=== PATIENT | female | born 1955 | race Caucasian/White ===

== ENCOUNTER 2021-11-27 05:40 | Observation (INO) ==
[~2021-11-27 05:40] MED LIST: HYDROmorphone 1 MG/1 ML SYRINGE IV PRN; Naloxone 0.4 mg VIAL 0.4 mg/ml 1 ml VIAL IV PRN; Ondansetron 4 mg VIAL 2 MG/ML 2 ml VIAL IV PRN
[2021-11-27] MEDS ORDERED: Lactated Ringers 1000 ml BAG 1,000 ML IV SCH ×2 (06:00→11:00)
[2021-11-27] MEDS ORDERED: Buffered Lidocaine 1% SYRIN 1 ml INTRADERM ONE (06:00)
[2021-11-27] MEDS ORDERED: ceFAZolin 2 GM in NS PREMIX 2 GM/100 ML BAG IVPB ONE (06:36)
[2021-11-27] MEDS ORDERED: Midazolam 2 mg/2 ml VIAL 1 mg/ml 2 ml VIAL (2 mg) ONE (07:22)
[2021-11-27] MEDS ORDERED: fentaNYL 100 mcg/2 ml 50 MCG/ML VIAL ONE (07:22)
[2021-11-27] MEDS ORDERED: Lidocaine 2% PF 5 ML VIAL ONE (07:24)
[2021-11-27] MEDS ORDERED: Phenylephrine IV 10 MG/ML 1 ml VIAL ONE (07:26)
[2021-11-27] MEDS ORDERED: Dexamethasone IV 4 MG/ML VIAL 1 ml VIAL ONE (08:20)
[2021-11-27] MEDS ORDERED: Ondansetron 4 mg VIAL 2 MG/ML 2 ml VIAL ONE (08:20)
[2021-11-27] MEDS ORDERED: Ondansetron ODT 4 mg TAB 4 MG TAB PO PRN (10:41)
[2021-11-27] MEDS ORDERED: Morphine 2 MG/ML SYRINGE IV PRN (10:41)
[2021-11-27] MEDS ORDERED: Lactulose 30 ml UDC PO PRN (10:41)
[2021-11-27] MEDS ORDERED: Ondansetron 4 mg VIAL 2 MG/ML 2 ml VIAL IV PRN (10:41)
[2021-11-27] MEDS ORDERED: Magnesium Hydroxide LIQ 30 ML UDC PO PRN (10:41)
[2021-11-27] MEDS ORDERED: HYDROmorphone 1 MG/1 ML SYRINGE ONE (10:43)
[2021-11-27] MEDS ORDERED: ceFAZolin 1 GM ADVAN 1 GM in NS 0.9% 50 ML 50 ML IVPB SCH (16:00)
[2021-11-27] MEDS ORDERED: Magnesium Hydroxide LIQ 30 ML UDC PO SCH (21:00)
[2021-11-28] MEDS ORDERED: Vitamin THERAPEUTIC TAB PO SCH (09:00)
== END 2021-11-27 15:50 | disposition home or self-care (01) ==
LOC: OR 05:40 → SSU 05:40
PROVIDERS: ADMIT Orthopaedic Surgery Adult Reconstructive Orthopaedic Surgery; ATTEND Orthopaedic Surgery Adult Reconstructive Orthopaedic Surgery

== ENCOUNTER 2022-02-19 07:49 | Observation (INO) ==
[~2022-02-19 07:49] MED LIST changes: +Buffered Lidocaine 1% SYRIN 1 ml INTRADERM ONE; -HYDROmorphone 1 MG/1 ML SYRINGE IV PRN; +Lactated Ringers 1000 ml BAG 1,000 ML IV SCH; -Naloxone 0.4 mg VIAL 0.4 mg/ml 1 ml VIAL IV PRN; -Ondansetron 4 mg VIAL 2 MG/ML 2 ml VIAL IV PRN
[2022-02-19] MEDS ORDERED: ceFAZolin 2 GM PREMIX 2 GM/50 ML BAG ONE (08:12)
[2022-02-19] MEDS ORDERED: Ondansetron 4 mg VIAL 2 MG/ML 2 ml VIAL IV PRN ×2 (10:51→14:11)
[2022-02-19] MEDS ORDERED: fentaNYL 100 mcg/2 ml 50 MCG/ML VIAL IV PRN (10:51)
[2022-02-19] MEDS ORDERED: Prochlorperazine 5 mg/ml 2 ml VIAL (10 mg) IV PRN (10:51)
[2022-02-19] MEDS ORDERED: HYDROmorphone 1 MG/1 ML SYRINGE IV PRN (10:51)
[2022-02-19] MEDS ORDERED: Naloxone 0.4 mg VIAL 0.4 mg/ml 1 ml VIAL IV PRN (10:51)
[2022-02-19] MEDS ORDERED: Midazolam 2 mg/2 ml VIAL 1 mg/ml 2 ml VIAL (2 mg) ONE ×2 (11:20→11:22)
[2022-02-19] MEDS ORDERED: Propofol 10 mg/ml 100 ML BTL 100 ML ONE (11:20)
[2022-02-19] MEDS ORDERED: fentaNYL 100 mcg/2 ml 50 MCG/ML VIAL ONE (11:22)
[2022-02-19] MEDS ORDERED: Ondansetron 4 mg VIAL 2 MG/ML 2 ml VIAL ONE (11:30)
[2022-02-19] MEDS ORDERED: Dexamethasone IV 4 MG/ML VIAL 1 ml VIAL ONE (11:30)
[2022-02-19] MEDS ORDERED: Propofol 10 MG/ML 20 ML BTL ONE (13:28)
[2022-02-19] MEDS ORDERED: Morphine 2 MG/ML SYRINGE IV PRN (14:11)
[2022-02-19] MEDS ORDERED: Magnesium Hydroxide LIQ 30 ML UDC PO PRN (14:11)
[2022-02-19] MEDS ORDERED: Ondansetron ODT 4 mg TAB 4 MG TAB PO PRN (14:11)
[2022-02-19] MEDS ORDERED: Lactulose 30 ml UDC PO PRN (14:11)
[2022-02-19] MEDS ORDERED: Lactated Ringers 1000 ml BAG 1,000 ML IV SCH (15:00)
[2022-02-19 16:39] VITALS: BP 122/97
[2022-02-19] MEDS ORDERED: ceFAZolin 1 GM ADVAN 1 GM in NS 0.9% 50 ML 50 ML IVPB SCH (20:00)
[2022-02-19] MEDS ORDERED: Magnesium Hydroxide LIQ 30 ML UDC PO SCH (21:00)
[2022-02-20] MEDS ORDERED: Vitamin THERAPEUTIC TAB PO SCH (09:00)
== END 2022-02-19 20:15 | disposition home or self-care (01) ==
LOC: SSU 07:49 → OR 07:49
PROVIDERS: ADMIT Orthopaedic Surgery Adult Reconstructive Orthopaedic Surgery; ATTEND Orthopaedic Surgery Adult Reconstructive Orthopaedic Surgery